=== PATIENT | male | born 1985 | race Caucasian/White ===

== ENCOUNTER 2016-10-27 17:19 | Emergency (ER) | payer SELFPAY ==
[~2016-10-27 17:19] MED LIST: NO HOME MEDICATIONS; NORCO 325 MG-51 TAB PO; PEN-VEE K250 MG PO
[2016-10-27] MEDS ORDERED: DOXYCYCLINE MO100 M1 PO (18:09)
== END 2016-10-27 18:25 | disposition home or self-care (01) ==
LOC: ED 17:19
DX: R23.8 Other skin changes (principal); L03.115 Cellulitis of right lower limb

== ENCOUNTER 2017-08-15 19:13 | Emergency (ER) | payer OTHER ==
[~2017-08-15] VITALS: Ht 162.6 cm; Wt 68.7 kg
[~2017-08-15 19:13] MED LIST changes: +DOXYCYCLINE MO100 M1 PO
[2017-08-15] MEDS ORDERED: BACTRIM DS TAB1 EACH PO (20:23)
[2017-08-15 21:01] LABS: HEMATOCRIT 37.5 % (42.0-52.0); HEMOGLOBIN 12.7 g/dL (13.5-18.0); MEAN CELL VOLUME 88 fl (78-100); MEAN CORPUSCULAR HEMOGLOBIN 30 pg (27-31); MEAN CORPUSCULAR HGB CONC 34 g/dL (33-37); MEAN PLATELET VOLUME 11.4 fl (7.4-10.4); PLATELET COUNT 254 K/mm3 (130-400); RED BLOOD COUNT 4.25 M/mm3 (4.20-5.60); RED CELL DISTRIBUTION WIDTH 12.3 % (11.5-14.5); WHITE BLOOD COUNT 13.4 K/mm3 (4.8-10.8)
[2017-08-15 21:29] LABS: LYMPHOCYTE 16 % (20-51); MONOCYTE 5 % (3-10); NEUTROPHILS 79 % (42-75)
[2017-08-15 21:36] VITALS: BP 141/81
== END 2017-08-15 21:30 | disposition home or self-care (01) ==
LOC: ED 19:13
PROVIDERS: Nurse Practitioner Family
DX: L02.611 Cutaneous abscess of right foot (principal); L03.031 Cellulitis of right toe; L03.115 Cellulitis of right lower limb; F17.210 Nicotine dependence, cigarettes, uncomplicated

== ENCOUNTER 2017-08-17 15:32 | Emergency (ER) | payer OTHER ==
[~2017-08-17] VITALS: Ht 162.6 cm; Wt 65.9 kg
[~2017-08-17 15:32] MED LIST changes: +BACTRIM DS TAB1 EACH PO
[2017-08-17 16:14] LABS: HEMATOCRIT 34.4 % (42.0-52.0); HEMOGLOBIN 11.9 g/dL (13.5-18.0); MEAN CELL VOLUME 87 fl (78-100); MEAN CORPUSCULAR HEMOGLOBIN 30 pg (27-31); MEAN CORPUSCULAR HGB CONC 35 g/dL (33-37); MEAN PLATELET VOLUME 10.8 fl (7.4-10.4); PLATELET COUNT 290 K/mm3 (130-400); RED BLOOD COUNT 3.96 M/mm3 (4.20-5.60); RED CELL DISTRIBUTION WIDTH 11.9 % (11.5-14.5); WHITE BLOOD COUNT 10.1 K/mm3 (4.8-10.8)
[2017-08-17 16:32] LABS: BAND 2 % (0-10); LYMPHOCYTE 16 % (20-51); MONOCYTE 2 % (3-10); NEUTROPHILS 76 % (42-75)
[2017-08-17 17:25] LABS: ERYTHROCYTE SEDIMENTATION RATE 64 mm/hr (0-15)
[2017-08-17 18:36] VITALS: BP 139/89
== END 2017-08-17 18:37 | disposition home or self-care (01) ==
LOC: ED 15:32
PROVIDERS: Family Medicine
DX: L03.115 Cellulitis of right lower limb (principal); F17.200 Nicotine dependence, unspecified, uncomplicated

== ENCOUNTER 2017-08-19 16:28 | Emergency (ER) | payer OTHER ==
[2017-08-19 18:13] VITALS: BP 134/73
== END 2017-08-19 18:17 | disposition home or self-care (01) ==
LOC: ED 16:28
DX: L02.611 Cutaneous abscess of right foot (principal); L89.899 Pressure ulcer of other site, unspecified stage; F17.200 Nicotine dependence, unspecified, uncomplicated

== ENCOUNTER 2017-08-28 09:02 | Outpatient (RCR) | payer OTHER ==
[~2017-08-28] VITALS: Ht 162.6 cm; Wt 65.9 kg
[2017-08-28 09:43] VITALS: BP 123/68
== END 2017-11-26 | disposition home or self-care (01) ==
LOC: AMSURD
DX: Z48.00 Encounter for change or removal of nonsurgical wound dressing (principal); S91.301D Unspecified open wound, right foot, subsequent encounter

== ENCOUNTER 2022-05-09 08:27 | Emergency (ER) | payer OTHER ==
[~2022-05-09] VITALS: Ht 162.6 cm; Wt 72.7 kg
[2022-05-09] MEDS ORDERED: AMOXICILLIN AND1 TA2 PO (08:49)
[2022-05-09 09:05] VITALS: BP 118/78
== END 2022-05-09 09:05 | disposition home or self-care (01) ==
LOC: ED 08:27
DX: K04.7 Periapical abscess without sinus (principal); F17.200 Nicotine dependence, unspecified, uncomplicated; Z28.310 Unvaccinated for COVID-19